=== PATIENT | male | born 1995 | race American Indian/Alaskan Native ===

== ENCOUNTER 2018-08-14 14:44 | Emergency (ER) | payer BC, OTHER ==
[2018-08-14 14:49] VITALS: BP 118/80
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
[2018-08-14] MEDS ORDERED: IBUPROFEN PO ONE (17:30)
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
== END 2018-08-14 18:45 | disposition home or self-care (01) ==
LOC: ED 14:44
DX: S50.12XA Contusion of left forearm, initial encounter (principal); F12.10 Cannabis abuse, uncomplicated; Z88.1 Allergy status to other antibiotic agents; V89.2XXA Person injured in unspecified motor-vehicle accident, traffic, initial encounter; Y93.89 Activity, other specified; Y92.488 Other paved roadways as the place of occurrence of the external cause; Y99.8 Other external cause status
CPT/HCPCS: 99283